=== PATIENT | male | born 2000 | race Hispanic/Latino ===

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

== ENCOUNTER 2021-12-01 20:12 | Emergency (ER) | payer SELFPAY ==
--- NOTE | 2021-12-01 21:46 | EDPHYS ---
Physician Documentation [facility] Name: Riacrdo Motley Age: 21 yrs Sex: Male : 2000 Arrival Date: 12/01/2021 Time: 20:14 Bed 24 Private MD: ED Physician Ghanshyam Redd HPI: 12/01 20:36 This 21 yrs old Male presents to ER via Ambulatory with complaints of Sinus rn Pain, Cough, Congestion. 20:36 The patient or guardian reports cough, that is intermittent, described as mild, with rn productive sputum. Onset: The symptoms/episode began/occurred 4 day(s) ago. Severity of symptoms: At their worst the symptoms were mild, in the emergency department the symptoms are unchanged. Modifying factors: The symptoms are alleviated by nothing, the symptoms are aggravated by nothing. Associated signs and symptoms: Pertinent positives: fever, rhinorrhea, sore throat, Pertinent negatives: chest pain, vomiting. The patient has experienced similar episodes in the past. The patient has not recently seen a physician. Pt reports multiple people in household sick with similar symptoms, 4 people currently out of 6, also exposed to rice dust and metal dust at work. No hx of asthma or chronic lung problems. + smoke exposure. No sob. Reports biggest complaint is persistent cough.. Historical: - Allergies: 20:36 No Known Allergies; tw5 - Home Meds: 20:36 None [Active]; tw5 - PMHx: 20:36 Pneumonia; tw5 - PSHx: 20:36 None; tw5 - Immunization history:: Adult Immunizations up to date. - Social history:: Smoking status: Reported history of juuling and/or vaping. - Family history:: not pertinent. - Hospitalizations: : No recent hospitalization is reported. ROS: 20:36 Constitutional: + fever Eyes: Negative for injury, pain, redness, and discharge, ENT: + rn sinus pressure and congestion Neck: Negative for injury, pain, and swelling, Cardiovascular: Negative for chest pain, palpitations, and edema, Respiratory: Negative for shortness of breath, wheezing, and pleuritic chest pain, Abdomen/GI: Negative for abdominal pain, nausea, vomiting, diarrhea, and constipation, Back: Negative for injury and pain, MS/Extremity: Negative for injury and deformity, Skin: Negative for injury, rash, and discoloration, Neuro: Negative for headache, weakness, numbness, tingling, and seizure. Exam: 20:36 Constitutional: This is a well developed, well nourished patient who is awake, alert, rn and in no acute distress. Head/Face: Normocephalic, atraumatic. Eyes: Periorbital areas with no swelling, redness, or edema. ENT: no stridor, no pharyngeal erythema or swelling Neck: Trachea midline, no masses palpated, and no cervical lymphadenopathy. Supple, full range of motion without nuchal rigidity, or vertebral point tenderness. No Meningismus. Cardiovascular: Regular rate and rhythm. No pulse deficits. Respiratory: Speaking full sentences, unlabored. No increased work of breathing, no retractions or nasal flaring. Skin: Warm, dry MS/ Extremity: Pulses equal, no cyanosis. Neuro: Awake and alert, GCS 15 Vital Signs: 20:27 BP 132 / 74; Pulse 91; Resp 18; Temp 99.5(O); Pulse Ox 100% on R/A; Weight 103.87 kg; tw5 Height 5 ft. 11 in. (180.34 cm); 21:54 BP 131 / 78; Pulse 88; Resp 18 S; Pulse Ox 100% on R/A; lg3 20:27 Body Mass Index 31.94 (103.87 kg, 180.34 cm) tw5 MDM: 20:15 Patient medically screened. rn 21:44 Differential Diagnosis: Bronchitis Influenza Upper Respiratory Infection Viral Syndrome rn Pneumonia. Data reviewed: vital signs, nurses notes, lab test result(s), radiologic studies, plain films, and as a result, I will discharge patient. Counseling: I had a detailed discussion with the patient and/or guardian regarding: the historical points, exam findings, and any diagnostic results supporting the discharge/admit diagnosis, lab results, radiology results, the need for outpatient follow up, to return to the emergency department if symptoms worsen or persist or if there are any questions or concerns that arise at home. Special discussion: I discussed with the patient/guardian in detail that at this point there is no indication for admission to the hospital. It is understood, however, that if the symptoms persist or worsen the patient needs to return immediately for re-evaluation. ED course: COVID/Flu/Strep neg, no pneumonia on CXR, no oxygen requirement, will dc home with return precautions.. 12/01 20:16 Order name: SARS-COV-2 RT PCR (Document "Date of Onset" if Symptomatic); Complete Time: rn 21:46 12/01 20:16 Order name: Flu; Complete Time: 21:20 rn 12/01 20:16 Order name: Strep; Complete Time: 21:20 rn 12/01 20:32 Order name: XRAY CXR (1 view) tw5 12/01 21:12 Order name: Throat Culture; Complete Time: 21:20 EDMS Administered Medications: No medications were administered Disposition Summary: 12/01/21 21:45 Discharge Ordered Location: Home rn Problem: new rn Symptoms: have improved rn Condition: Stable rn Diagnosis - Cough rn - Acute upper respiratory infection, unspecified rn Followup: rn - With: Private Physician - When: As needed - Reason: Recheck today's complaints, Re-evaluation by your physician Discharge Instructions: - Discharge Summary Sheet rn - Upper Respiratory Infection, Adult rn - Cough, Adult rn Forms: - Medication Reconciliation Form rn - Thank You Letter rn - 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 Day 2, 3, 4 , 5 take one (1) tablet once daily.; 6 tablet; Refills: 0, Product Selection Permitted Signatures: Dispatcher [employer] EDMS Ghanshyam Redd MD MD rn Gibson, Lacie, RN RN lg3 Wood, Tiffany tw5 Corrections: (The following items were deleted from the chart) 20:37 20:36 PMHx: None; tw
--- NOTE | 2021-12-01 21:46 | ER ---
Nurse's Notes [facility] Name: Ricardo Motley Age: 21 yrs Sex: Male : 2000 Arrival Date: 12/01/2021 Time: 20:14 Bed 24 Private MD: Diagnosis: Cough;Acute upper respiratory infection, unspecified Presentation: 12/01 20:27 Chief complaint: Patient states: "I have been having cough, mucus, my chest hurts. I tw5 have been coughing up mucus with blood. Everyone at my house has an upper respiratory infection and an ear infection.". Coronavirus screen: Vaccine status: Patient reports being unvaccinated. Ebola Screen: Patient negative for fever greater than or equal to 101.5 degrees Fahrenheit, and additional compatible Ebola Virus Disease symptoms Patient denies exposure to infectious person. Patient denies travel to an Ebola-affected area in the 21 days before illness onset. Initial Sepsis Screen: Does the patient meet any 2 criteria? HR > 90 bpm. Does the patient have a suspected source of infection? Yes: Productive cough/pneumonia. Risk Assessment: Do you want to hurt yourself or someone else? Patient reports no desire to harm self or others. Onset of symptoms was December 01, 2021. 20:27 Method Of Arrival: Ambulatory tw5 20:27 Acuity: KENNEDI 4 tw5 Triage Assessment: 20:36 Headache History:. General: Appears in no apparent distress. Behavior is calm, tw5 cooperative, appropriate for age. Pain: Pain currently is 3 out of 10 on a pain scale. Pain began gradually, Also complains of shortness of breath. Neuro: Level of Consciousness is awake, obeys commands, Oriented to person, place, time, situation. Historical: - Allergies: 20:36 No Known Allergies; tw5 - Home Meds: 20:36 None [Active]; tw5 - PMHx: 20:36 Pneumonia; tw5 - PSHx: 20:36 None; tw5 - Immunization history:: Adult Immunizations up to date. - Social history:: Smoking status: Reported history of juuling and/or vaping. - Family history:: not pertinent. - Hospitalizations: : No recent hospitalization is reported. Screenin:33 Abuse screen: Denies threats or abuse. Denies injuries from another. Nutritional tw5 screening: No deficits noted. Tuberculosis screening: No symptoms or risk factors identified. Fall Risk None identified. Assessment: 21:34 General: Appears in no apparent distress. comfortable, Behavior is calm, cooperative. lg3 Pain: Complains of pain in chest Aggravated by cough Also complains of shortness of breath. Neuro: No deficits noted. Level of Consciousness is awake, alert, obeys commands, Oriented to person, place, time, situation. Cardiovascular: No deficits noted. Capillary refill < 3 seconds Clubbing of nail beds is absent JVD is absent Patient's skin is warm and dry. Respiratory: Reports shortness of breath cough that is pain with cough Airway is patent Trachea midline Respiratory effort is even, unlabored, Respiratory pattern is regular, symmetrical. GI: No deficits noted. No signs and/or symptoms were reported involving the gastrointestinal system. Abdomen is round non-distended, Bowel sounds present X 4 quads. Abd is soft and non tender X 4 quads. : No deficits noted. No signs and/or symptoms were reported regarding the genitourinary system. EENT: No deficits noted. No signs and/or symptoms were reported regarding the EENT system. Derm: No deficits noted. No signs and/or symptoms reported regarding the dermatologic system. Skin is intact, is healthy with good turgor, Skin is dry, Skin temperature is warm. Musculoskeletal: No deficits noted. No signs and/or symptoms reported regarding the musculoskeletal system. Circulation, motion, and sensation intact. Range of motion: intact in all extremities. 21:55 Reassessment: Patient appears in no apparent distress at this time. No changes from lg3 previously documented assessment. Patient and/or family updated on plan of care and expected duration. Pain level reassessed. Patient is alert, oriented x 3, equal unlabored respirations, skin warm/dry/pink. Vital Signs: 20:27 BP 132 / 74; Pulse 91; Resp 18; Temp 99.5(O); Pulse Ox 100% on R/A; Weight 103.87 kg; tw5 Height 5 ft. 11 in. (180.34 cm); 21:54 BP 131 / 78; Pulse 88; Resp 18 S; Pulse Ox 100% on R/A; lg3 20:27 Body Mass Index 31.94 (103.87 kg, 180.34 cm) tw5 ED Course: 20:14 Patient arrived in ED. as 20:15 Redd, Ghanshyam, MD is Attending Physician. rn 20:29 Triage completed. tw5 20:36 Arm band placed on. tw 20:37 Strep Sent. tw 20:37 Flu Sent. tw 20:37 SARS-COV-2 RT PCR (Document "Date of Onset" if Symptomatic) Sent. tw 20:37 COVID swab sent to lab. Flu and/or RSV swab sent to lab. Strep swab sent to lab. tw5 21:32 Pastora Leach, RN is Primary Nurse. lg3 21:34 Bed in low position. Call light in reach. Side rails up X 1. Client placed on lg3 continuous cardiac and pulse oximetry monitoring. NIBP monitoring applied. Door closed. Noise minimized. Warm blanket given. Family accompanied patient. 21:36 XRAY CXR (1 view) In Process Unspecified. EDMS 21:55 No provider procedures requiring assistance completed. Patient did not have IV access lg3 during this emergency room visit. Administered Medications: No medications were administered Medication: 21:55 VIS not applicable for this client. lg3 Outcome: 21:45 Discharge ordered by . rn 21:55 Discharged to home ambulatory, with family. lg3 21:55 Condition: stable 21:55 Discharge instructions given to patient, Instructed on discharge instructions, follow up and referral plans. medication usage, Demonstrated understanding of instructions, follow-up care, medications, Prescriptions given X 1. 21:55 Patient left the ED. lg3 Signatures: Dispatcher [employer] EDMS Madina Romero as Ghanshyam Redd MD MD rn Gibson, Lacie, RN RN 3 Alycia Yates Corrections: (The following items were deleted from the chart) 20:37 20:36 PMHx: None; tw
--- NOTE | 2021-12-01 21:55 | RAD REPORT ---
EXAM DESCRIPTION: RAD - Chest Single View - 12/01/2021 9:34 pm CLINICAL HISTORY: CHEST PAIN COMPARISON: None TECHNIQUE: AP portable chest image was obtained 12/01/2021 9:34 pm . FINDINGS: Lungs are clear. Heart and vasculature are normal. No measurable pleural effusion and no p neumothorax. No acute bony abnormality seen. No acute aortic findings suspected. IMPRESSION: No acute cardiopulmonary process.
[2021-12-02 01:46] VITALS: TEMP 99.5; O2SAT 100
[2021-12-02 01:49] VITALS: BP 131/78
== END 2021-12-01 21:55 | disposition home or self-care (01) ==
LOC: ER 20:12
DX: J06.9 Acute upper respiratory infection, unspecified (principal); Z20.822 Contact with and (suspected) exposure to COVID-19
CPT/HCPCS: 71045; 87070; 87081; 87804; 99283; U0003